=== PATIENT | female | born 1990 | race Caucasian/White ===

== ENCOUNTER → 2019-04-18 | Outpatient (CLI) | payer BC, SELFPAY ==
[2019-04-18 17:39] LABS: Hematocrit 38.9 % (37-47); Hemoglobin 13.3 g/dl (12.0-15.0); Mean Corp Hgb Conc 34.2 g/gl (32-36); Mean Corpuscular Hgb 32.3 pg (27.0-32.0); Mean Corpuscular Volume 94.4 fL (81-99); Platelet Count 228 K/mm3 (150-450); RBC Distribution Width CV 12.5 % (11.6-14.6); Red Blood Count 4.12 M/mm3 (4.2-5.4); White Blood Count 6.1 K/mm3 (4.4-11.0)
[2019-04-18 17:44] LABS: Scan Indicated on CBC? Y/N NO
[2019-04-18 18:08] LABS: Vitamin B12 637 pg/mL (211-911)
[2019-04-18 18:09] LABS: Anion Gap 5 (5-15); BUN 10 mg/dL (7-18); BUN/Creat Ratio 13.9 RATIO (10-20); Calcium,Total 8.5 mg/dL (8.5-10.1); Chloride 107 mmol/L (98-107); Creatinine, Serum 0.72 mg/dL (0.55-1.02); EST Glomerular Filtration Rate 103 mL/min (>60); Est Glom Filt Rate - Afr Amer 124 mL/min (>60); Ferritin 24 ng/mL (8-252); Glucose 81 mg/dL (74-106); Iron 97 ug/dL (50-170); Potassium 3.7 mmol/L (3.5-5.1); Sodium Level 141 mmol/L (136-145); Thyroid Stim Hormone (TSH) 1.88 uIU/mL (0.358-3.74)
== END | disposition home or self-care (01) ==
LOC: MFPLAB 15:19
PROVIDERS: Family Provider Family Medicine; PCP Family Medicine; Visit Provider Family Medicine
DX: R53.83 Other fatigue (principal)
CPT/HCPCS: 36415; 80048; 82306; 82607; 82728; 83540; 84443; 85027

== ENCOUNTER → 2019-09-04 | Outpatient (CLI) | payer BC, SELFPAY ==
[2019-09-07 05:06] LABS: Chlamydia By Nucleic Acid AMP Negative (Negative)
[2019-09-07 08:56] LABS: Gonococcus By Nucleic Acid AMP Negative (Negative)
[2019-09-07 08:58] LABS: HPV Reflexed? NOT INDICATED
== END | disposition home or self-care (01) ==
PROVIDERS: Family Provider Family Medicine; PCP Family Medicine; Referring Provider Nurse Practitioner Adult Health; Visit Provider Nurse Practitioner Adult Health
DX: R10.2 Pelvic and perineal pain (principal); Z01.419 Encounter for gynecological examination (general) (routine) without abnormal findings
CPT/HCPCS: 87070; 87205; 87491; 87591; 88175; G0145

== ENCOUNTER → 2019-10-30 13:18 | Outpatient (CLI) | payer BC, SELFPAY ==
--- NOTE | 2019-10-30 13:23 | US_ITS ---
STUDY: ULTRASOUND TRANSVAGINAL CLINICAL: Female, 29 years old. Ovarian cyst TECHNIQUE: Transvaginal COMPARISON: None. FINDINGS: Normal uterine size measuring 11.7 x 4.7 x 3.7 cm in maximal craniocaudal dimension. There are no myometrial masses. Normal endometrial thickness measuring 3 mm and appears hyperechoic. There are no endometrial masses, and there is no fluid in the endometrial cavity. Normal uterine cervix. Normal right ovary, measuring 2.6 x 1.8 x 1.7 cm. There are multiple follicles without a dominant cyst. Normal left ovary, measuring 3.0 x 2.2 x 1.7 cm. There are multiple follicles without a dominant cyst. There is no free fluid in the pelvis. US/Transvaginal Non- IMPRESSION: No acute pathology is noted in the pelvis. Follicles are noted with no ovarian cyst. Electronically Signed: Enmanuel Persaud DO at 21:17 EST Tel [phone], Service support ,
== END ==
PROVIDERS: Family Provider Family Medicine; PCP Family Medicine; Referring Provider Family Medicine; Visit Provider Family Medicine
DX: N83.209 Unspecified ovarian cyst, unspecified side (principal)
CPT/HCPCS: 76830